=== PATIENT | female | born 1980 | race Caucasian/White ===

== ENCOUNTER 2024-09-10 19:17 | Emergency (ER) | payer SELFPAY ==
[~2024-09-10] VITALS: Ht 162.6 cm; Wt 100.0 kg
[2024-09-10 20:26] LABS: Basophils # (auto) 0.1 10 ^3/uL (0-0.2); Basophils % (auto) 0.6 % (0.0-2.0); Eosinophils # (auto) 0.1 10 ^3/uL (0-0.8); Eosinophils % (auto) 0.6 % (0.0-7.0); Hematocrit 42.9 % (36.0-46.0); Hemoglobin 14.5 g/dL (12.2-16.2); Lymphocytes # (auto) 2.8 10 ^3/uL (0.4-5.4); Lymphocytes % (auto) 21.3 % (10.0-50.0); Mean Corpuscular Hemoglobin 29.6 pg (28.0-32.0); Mean Corpuscular Hgb Conc. 33.8 g/dL (32.0-36.0); Mean Corpuscular Volume 87.6 fL (80.0-100.0); Monocytes # (auto) 0.8 10 ^3/uL (0-1.3); Monocytes % (auto) 6.4 % (0.0-12.0); Neutrophils # (auto) 9.4 10 ^3/uL (1.6-8.6); Neutrophils % (auto) 71.1 % (37.0-80.0); Platelet Count (auto) 368 10^3/uL (140-450); Red Blood Cells 4.89 10^6/uL (4.0-5.20); White Blood Cell 13.3 10^3/uL (4.4-10.8)
[2024-09-10 20:43] LABS: Alanine Aminotransferase 16 U/L (7-40); Albumin 4.5 g/dL (3.2-4.8); Alkaline Phosphatase 99 U/L (46-116); Anion Gap 12 (5-15); Aspartate Aminotransferase 17 U/L (<34); BUN/Creatinine Ratio 15.4 (10.0-20.0); Blood Urea Nitrogen 10 mg/dL (9-23); Calcium 9.7 mg/dL (8.7-10.4); Carbon Dioxide 22 mmol/L (20-31); Chloride 106 mmol/L (98-107); Sodium 140 mmol/L (136-145); Total Protein 7.8 g/dL (5.7-8.2)
--- NOTE | 2024-09-10 20:43 | ED.PDOC ---
History of Present Illness HPI Comments 44 y/o obese F presents with spouse for dizziness, with associated nausea and vomiting. Per spouse, patient began experiencing symptoms, suddenly, after eating a salad and soup at [employer], earlier, this evening. Patient denies any bloody or bilious vomitus, diarrhea, urinary symptoms, fever, chills, or further associated symptoms. Chief Complaint: Nausea/Vomiting Time Seen by MD: 20:15 Reviewed Notes: Nurses Notes, Medications, Allergies Allergies: Coded Allergies: NO KNOWN ALLERGIES (Unverified , 09/10/24) Home Meds Active Scripts Cefdinir (Cefdinir) 300 Mg Cap, 1 CAP PO BID for 7 Days, #14 CAP Prov:KRISSY SUÁREZ MD 09/10/24 Potassium Chloride (Potassium Chloride ER) 10 Meq Tab, 10 MEQ PO BID for 10 Days, #20 TAB Prov:KRISSY SUÁREZ MD 09/10/24 Metoclopramide HCl (Metoclopramide Odt) 5 Mg Tab, 5 MG PO Q6HP PRN, #30 TAB Prov:KRISSY SUÁREZ MD 09/10/24 Ondansetron HCl (Ondansetron Hydrochloride) 8 Mg Tab, 8 MG PO Q6HP PRN, #30 TAB Prov:KRISSY SUÁREZ MD 09/10/24 Information Source: Patient Mode of Arrival: Wheelchair Severity: Moderate Timing: Hours Duration: Since onset Prehospital treatment: None Past Medical History PAST MEDICAL HISTORY: Denies Surgical History: Denies all surgeries V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 History: No Pertinent VIDEO 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 History Family History Family History: Unknown Social History Smoker: Non-Smoker Alcohol: Denies ETOH Use Drugs: Denies Drug Use Lives In: Home All Other Systems: Reviewed and Negative (As per HPI) Physical Exam General Appearance: Mild Distress, Obese HEENT: Normal ENT Inspection, Pharynx Normal, TMs Normal Neck: Full Range of Motion, Non-Tender, Normal, Normal Inspection Respiratory: Chest Non-Tender, Lungs Clear, No Accessory Muscle Use, No Respiratory Distress, Normal Breath Sounds Cardiovascular: No Edema, No JVD, No Murmur, No Gallop, Normal Peripheral Pulses, Regular Rate/Rhythm Breast Exam: Deferred Gastrointestinal: No Organomegaly, Non Tender, No Pulsatile Mass, Normal Bowel Sounds, Soft Genitalia: Deferred Pelvic: Deferred Rectal: Deferred Extremities: No calf tenderness, Normal capillary refill, Normal inspection, Normal range of motion, Non-tender, No pedal edema Musculoskeletal : Apperance: Normal Neurologic: Alert, rubber stamp maker II-XII nml as Tested, No Motor Deficits, Normal Affect, Normal Mood, No Sensory Deficits Cerebellar Function: Normal Reflexes: Normal Skin: Dry, Normal Color, Warm Lymphatic: No Adenopathy Was a procedure done? Was a procedure done?: No Differential Dx Considerations may include: vertigo, spoiled food, viral syndrome, among others X-Ray, Labs, Meds, VS Vital Signs Date Time Temp Pulse Resp B/P (MAP) Pulse Ox O2 Delivery O2 Flow Rate FiO2 09/10/24 20:50 Room Air* 0 21 09/10/24 20:49 97.7 75 16 133/71 (91) 98 97.7 09/10/24 19:46 98.0 77 16 139/76 (97) 97 98.0 Lab Test 09/10/24 21:44 09/10/24 20:14 Range/Units Urine Color Light-yellow Yellow Urine Clarity Turbid H Clear Urine pH 6.0 5.0-9.0 Urine Specific [place] 1.024 1.001-1.035 Urine Protein Negative Negative Urine Ketones 1+ H Negative Urine Blood Trace H Negative /uL Urine Nitrite 2+ H Negative Urine Bilirubin Negative Negative Urine Urobilinogen Normal Negative mg/dL Urine Leukocyte Esterase Trace Negative /uL Urine RBC 1 0 - 4 /hpf Urine Microscopic WBC 11 H 0-5 /HPF Urine Squamous Epithelial Cells Few <5 /hpf Urine Bacteria Many H None Seen /hpf Urine Mucus Few None Seen Urine Glucose Normal Normal mg/dL Urine Test Negative Negative White Blood Count 13.3 H 4.4-10.8 10^3/uL Red Blood Count 4.89 4.0-5.20 10^6/uL Hemoglobin 14.5 12.2-16.2 g/dL Hematocrit 42.9 36.0-46.0 % Mean Corpuscular Volume 87.6 80.0-100.0 fL Mean Corpuscular Hemoglobin 29.6 28.0-32.0 pg Mean Corpuscular Hemoglobin Concent 33.8 32.0-36.0 g/dL Red Cell Distribution Width 14.0 11.8-14.3 % Platelet Count 368 140-450 10^3/uL Mean Platelet Volume 6.9 6.9-10.8 fL Neutrophils (%) (Auto) 71.1 37.0-80.0 % Lymphocytes (%) (Auto) 21.3 10.0-50.0 % Monocytes (%) (Auto) 6.4 0.0-12.0 % Eosinophils (%) (Auto) 0.6 0.0-7.0 % Basophils (%) (Auto) 0.6 0.0-2.0 % Neutrophils # (Auto) 9.4 H 1.6-8.6 10 ^3/uL Lymphocytes # (Auto) 2.8 0.4-5.4 10 ^3/uL Monocytes # (Auto) 0.8 0-1.3 10 ^3/uL Eosinophils # (Auto) 0.1 0-0.8 10 ^3/uL Basophils # (Auto) 0.1 0-0.2 10 ^3/uL Nucleated Red Blood Cells 0.0 % Sodium Level 140 136-145 mmol/L Potassium Level 3.3 L 3.5-5.1 mmol/L Chloride Level 106 98-107 mmol/L Carbon Dioxide Level 22 20-31 mmol/L Anion Gap 12 5-15 Blood Urea Nitrogen 10 9-23 mg/dL Creatinine 0.65 0.550-1.02 mg/dL Glomerular Filtration Rate Calc 113 >90 mL/min BUN/Creatinine Ratio 15.4 10.0-20.0 Serum Glucose 136 H 74-106 mg/dL Calcium Level 9.7 8.7-10.4 mg/dL Magnesium Level 2.0 1.6-2.6 mg/dL Total Bilirubin 0.4 0.2-1.0 mg/dL Aspartate Amino Transferase (AST) 17 <34 U/L Alanine Aminotransferase (ALT) 16 7-40 U/L Alkaline Phosphatase 99 46-116 U/L Total Protein 7.8 5.7-8.2 g/dL Albumin 4.5 3.2-4.8 g/dL Current Medications Medications (Trade) Dose Ordered Sig/Tamar Route Start Time Stop Time Status Last Admin Sodium Chloride 1,000 ml @ 1,000 mls/hr Q1H ONCE IV 09/10/24 20:15 09/10/24 21:14 DC 09/10/24 20:45 Ondansetron HCl (Zofran) 4 mg ONCE ONCE IV 09/10/24 20:15 09/10/24 20:16 DC 09/10/24 20:45 Metoclopramide HCl (Reglan Injection) 5 mg ONCE ONCE IV 09/10/24 21:30 09/10/24 21:31 DC 09/10/24 21:28 Diphenhydramine HCl (Benadryl Injection) 25 mg ONCE ONCE IV 09/10/24 21:30 09/10/24 21:31 DC 09/10/24 21:27 Meclizine HCl (Antivert Tablet) 25 mg ONCE ONCE PO 09/10/24 21:30 09/10/24 21:31 DC 09/10/24 21:51 Potassium Chloride (Klor-Con Tablet) 20 meq ONCE ONCE PO 09/10/24 21:30 09/10/24 21:31 DC 09/10/24 21:51 Time of 1ST Reevaluation: 20:45 Reevaluation 1ST: Unchanged Patient Education/Counseling: Diagnosis, Treatment, Need For Follow Up Family Education/Counseling: Diagnosis, Treatment, Need For Follow Up Departure 1 Departure Time of Disposition: 23:00 Impression: Primary Impression: Nausea and vomiting Additional Impressions: Dehydration Hypokalemia Disposition: HOME / SELF CARE / HOMELESS Condition: Stable e-Prescriptions Cefdinir (Cefdinir) 300 Mg Cap 1 CAP PO BID for 7 Days, #14 CAP Prov: KRISSY SUÁREZ MD 09/10/24 Potassium Chloride (Potassium Chloride ER) 10 Meq Tab 10 MEQ PO BID for 10 Days, #20 TAB Prov: KRISSY SUÁREZ MD 09/10/24 Metoclopramide HCl (Metoclopramide Odt) 5 Mg Tab 5 MG PO Q6HP PRN, #30 TAB Prov: KRISSY SUÁREZ MD 09/10/24 Ondansetron HCl (Ondansetron Hydrochloride) 8 Mg Tab 8 MG PO Q6HP PRN, #30 TAB Prov: KRISSY SUÁREZ MD 09/10/24 Discharged With: Self Critical Care Note Critical Care Time?: No Stability Stability form required: No Heart Score Heart Score: Heart Score Response (Comments) Value History N/A 0 EKG N/A 0 Age N/A 0 Risk Factors N/A 0 Troponin N/A 0 Total 0 I personally scribed for KRISSY SUÁREZ MD ([email or web address]) on 09/10/24 at 20:43. Electronically submitted by Mike Grover ([email or web address]). KRISSY SUÁREZ MD Sep 10, 2024 20:43
[2024-09-10 20:44] LABS: Bilirubin, Total 0.4 mg/dL (0.2-1.0); Glucose 136 mg/dL (74-106); Potassium 3.3 mmol/L (3.5-5.1)
[2024-09-10] MEDS: ONDANSETRON HCL 4 MG/2 ML VIAL IV ONE (20:45)
[2024-09-10] MEDS: SODIUM CHLORIDE 0.9% 1,000 ML IV ONE (20:45)
[2024-09-10 20:49] VITALS: BP 133/71; PULSE 75; RESP 16; TEMP 97.7; O2SAT 98
[2024-09-10] MEDS: diphenhdrAMINE HCL 50 MG/1 ML VL IV ONE (21:27)
[2024-09-10] MEDS: METOCLOPRAMIDE HCL 5MG/ml INJ 2ml VIAL IV ONE (21:28)
[2024-09-10] MEDS ORDERED: METO5TAB75 PO (21:30)
[2024-09-10] MEDS ORDERED: ONDA-180 PO (21:30)
[2024-09-10] MEDS ORDERED: POTA-228 PO (21:30)
[2024-09-10] MEDS: MECLIZINE HCL 25 MG TAB PO ONE (21:51)
[2024-09-10] MEDS: POTASSIUM CHL 20 Meq TABLET PO ONE (21:51)
[2024-09-10 22:06] LABS: Urine Bacteria MANY /hpf (None Seen); Urine Blood TRACE /uL (Negative); Urine Clarity Turbid (Clear); Urine Color Light-Yellow (Yellow); Urine Mucus FEW (None Seen); Urine Protein, UAD Negative (Negative); Urine Specific Gravity 1.024 (1.001-1.035); Urine Squamous Epithelial Cell FEW /hpf (<5); Urine Urobilinogen Normal (Negative); Urine WBC 11 /HPF (0-5)
[2024-09-10] MEDS ORDERED: CEFD300C2 PO (22:21)
== END 2024-09-10 22:26 | disposition home or self-care (01) ==
LOC: ER 19:17
DX: E87.6 Hypokalemia (principal); E86.0 Dehydration; E66.9 Obesity, unspecified; Z79.899 Other long term (current) drug therapy
CPT/HCPCS: 36415; 80053; 81001; 81025; 83735; 85025; 96361; 96374; 96375; 99284; J1200; J2405; J2765; J7030; J8597